=== PATIENT | female | born 1940 | race Caucasian/White ===

== ENCOUNTER → 2021-06-19 13:24 | Outpatient (CLI) | payer MEDICARE, OTHER, SELFPAY ==
--- NOTE | 2021-06-19 13:29 | DI.MRI.S_ITS ---
PROCEDURE: MR KNEE RT WO CON INDICATIONS: RIGHT KNEE PAIN TECHNIQUE: Noncontrast sagittal PD fast spin echo and T2 fast spin echo with fat saturation, sagittal 3-D FLASH with fat saturation; coronal T1 spin echo and PD fast spin echo with fat saturation, and axial PD fast spin echo with fat saturation through the knee. COMPARISON: [facility], CR, XR KNEE STANDING BILATERAL, 06/07/2021, 14:09. [facility] Outside Film, RG, KNEE 3VW (RT), 05/24/2021, 16:05. FINDINGS: Image quality: Excellent. Menisci: There is a radial tear in the body of the medial meniscus. There is horizontal tear of the posterior horn of the medial meniscus involving the inferior articular surface. Degenerative tear is noted in the anterior root of the lateral meniscus. There is intrasubstance degeneration of the posterior root lateral meniscus. Cruciate ligaments: The anterior and posterior cruciate ligaments appear intact. Medial structures: The medial collateral ligament appears intact. The semimembranosus tendon insertions and meniscocapsular junction appear intact. Visualized portions of the pes anserinus tendons appear normal. No abnormal bursal fluid. Lateral structures: The lateral collateral ligament, long and short heads of the biceps femoris tendon appear intact. The popliteus tendon appears normal;. Iliotibial band appears normal. Anterior structures: The quadriceps and patellar tendons appear intact. Patellar alignment is normal. No femoral trochlear dysplasia or ventral trochlear prominence. No edema in the infrapatellar fat pad. Bones and cartilage: No fractures. Mild contusion or reactive edema in the medial femoral condyle and the tibial plateau. There is tricompartmental cartilage thinning and signal degeneration, most pronounced in the medial femorotibial compartment. Joint space: There is moderate knee joint fluid. There is a small Pérez's cyst. Normal appearing synovial plicae are incidentally noted. IMPRESSION: 1. Radial tear of the body of the medial meniscus. 2. Horizontal tear of the posterior horn of the medial meniscus involving the inferior articular surface. 3. Tear of the anterior root and intrasubstance degeneration of the posterior root of the lateral meniscus. 4. 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 5. Moderate knee joint effusion. 6. A small Pérez's cyst. Dictated by: Victor M Carpenter M.D. on 06/21/2021 at 8:10 Approved by: Victor M Carpenter M.D. on 06/21/2021 at 8:21
== END ==
PROVIDERS: Family Provider Internal Medicine Gastroenterology; PCP Internal Medicine; Referring Provider Internal Medicine; Visit Provider Internal Medicine
DX: S83.241A Other tear of medial meniscus, current injury, right knee, initial encounter (principal); S83.281A Other tear of lateral meniscus, current injury, right knee, initial encounter; M25.561 Pain in right knee; M94.261 Chondromalacia, right knee; M25.461 Effusion, right knee; M71.21 Synovial cyst of popliteal space [Baker], right knee
CPT/HCPCS: 73721